=== PATIENT | female | born 2000 ===

== ENCOUNTER 2025-03-02 08:59 | Outpatient (AMB) | payer BC, SELFPAY ==
--- NOTE | 2025-03-02 09:01 | MHC.OFFWIV ---
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 This initially started with a mildly sore throat, which has since resolved. Cough has been persistent throughout the day, and especially worse overnight, limiting patient's ability to sleep and impacting her work. Denies any known exposure to sick contacts. Denies any fevers, chills, body aches, shortness of breath, GI symptoms. Has been taking Dayquil/Nyquil with some minor benefit. Review of Systems Const All systems reviewed & are unremarkable except as noted in HPI and below Physical Exam Const General: cooperative, healthy appearing, comfortable and no acute distress HEENT Head: Yes normal to inspection Ears: hearing grossly normal bilaterally General nose exam: Normal external nose present, Normal nares present and Normal nasal mucous membranes and turbinates present Face and sinus: Yes normal facial exam and Yes sinuses nontender Mouth: Normal oral and palatal mucosa present Throat: Yes posterior oropharynx normal Neck Neck: Yes normal visual inspection and Yes no lymphadenopathy Resp Effort & Inspection: normal respiratory effort and Actively coughing Quality: dry Auscultation: clear to auscultation bilaterally Cardio Rate: regular rate Rhythm: regular rhythm Heart sounds: S1 normal heart sound present and S2 normal heart sound present Skin General skin exam: no rashes or lesions noted Extrem General: Yes capillary refill normal and Yes no clubbing, cyanosis or edema Psych Appearance: grossly normal Mental Status: mental status grossly normal Speech and movement: Normal speech and movement present Results AMB Rapid Strep AMB Rapid Strep Negative Last Edit by Gemma Vicente MA on 03/02/25 09:15 Assessment & Plan Assessment & Plan (1) Persistent dry cough: Code(s): R05.3 - Chronic cough Plan: Persistent, dry cough >1w. Rapid strep negative. Has tried otc products. Discussed short course of Prednisone, which patient would like to try, as coughing has been limiting sleep and ability to go to work. We reviewed indications, use, possible s/e of medication. She should continue with adequate hydration. Can use lozenges/cough drops prn. If she does not improve with treatment or if symptoms worsen, she can return to the clinic for further evaluation. Patient verbailizes understanding and agrees to plan. Orders: Orders AMB Rapid Strep Screen Today Z13.9 - Encounter for screening, unspecified Medications: New prednisone 40 mg (2 x 20 mg) PO DAILY 6 tabs 0RF 3 days R05.3 - Chronic cough Coding Level of Care Code Est Pt Level 4 (40511) Diagnoses Persistent dry cough R05.3
[2025-03-02 09:03] VITALS: BP 102/60; PULSE 75; TEMP 36.7; O2SAT 95; BMI 23.5
--- OUTSIDE RECORDS SUMMARY | 2025-03-02 09:25 | XMS_ITS | Encounter Summary ---
Author Organization [facility] Address [address] [place] [address] Phone Care Team Providers Care Traffic Workforce Representative Name Role Phone Dina Singh MD Primary Care Provider Unavailab le Encounter Details Date Type Department Care Team (Late st Contact Info) Description 08/24/[address] [facility] [place] [address] [place] [address] Family Medicine, Physician [address] [place] [address] Social History Tobacco Use Types Packs/Day Years Used Date Smoking Tobacco: Never Assessed Comments Unknown Sex and Gender Information Value Date Recorded Sex Assigned at Not on file Legal Sex Female 4:53 PM EDT Gender Identity Not on file Sexual Orientation Not on file documented as of this encounter Plan of Treatment Not on file documented as of this encounter Visit Diagnoses Not on filedocumented in this encounter Care Teams Traffic Workforce Representative Relationship Specialty Start Date End Date Dina Singh MD PCP - General Pediatrics 09/24/17 11/11/22 documented as of this encounter
--- OUTSIDE RECORDS SUMMARY | 2025-03-02 09:25 | XMS_ITS | Clinical Summary ---
Author Organization [facility] Address [address] [place] [address] Phone Care Team Providers Care Change Control Analyst Name Role Phone Unavailable Primary Care Provider Unavailabl e Allergies No known active allergies Medications No known medications Active Problems No known active problems Immunizations Immunization Administration Dates Next Due DTaP 09/15/2006, 4,06/12/2002, 002,02/10/2002 HPV Vaccine 9 Valent 10/26/2018,04/18/2018,10/15 Hep A, ped/adol 02/28/2014,09/15/2006 Hep B, ped/adol 09/15/2002,01/11/2002,2001 Hib (PRP-T) 06/18/2003, 3,04/03/2002, 002 IPV 09/15/2006, 3,04/03/2002, 002 Influenza, injectable, quadrivalent 08/20/2015 Influenza, intranasal, quadrivalent 02/28/2014 Influenza, intranasal, trivalent 06/15/2012 MMR 03/20/2003 MMRV 09/15/2006 Meningococcal Conj (Menactra) MCV4P 10/26/2018,1 Pneumococcal Conjugate 06/18/2003,2002,06/12/2002, 002 Tdap 01/25/2014 Varicella 06/08/2005 Family History Relation Name Status Comments Brother Jony Alive Father Ray Alive Mother Sandra Alive Other Family history of Cancer, lung, Family history of Obesity, Family history of Diabetes mellitus, Family history of Migraines, Family history of Asthma Social History Tobacco Use Types Packs/Day Years Used Date Smoking Tobacco: Never Smokeless Tobacco: Never Comments:Never smoker Alcohol Use Standard Drinks/Week Comments No 0 (1 standard drink = 0.6 oz pur e alcohol) Comments No Sex and Gender Information Value Date Recorded Sex Assigned at Not on file Legal Sex Female 4:53 PM EDT Gender Identity Not on file Sexual Orientation Not on file Last Filed Vital Signs Vital Sign Reading Time Taken Comments Blood Pressure 119/71 10/26/2018 1:44 PM EDT Pulse 58 10/26/2018 1:44 PM EDT Temperature 36.2 C (97.1 F) 12/10/2017 11:08 AM EDT Respiratory Rate - - Oxygen Saturation - - Inhaled Oxygen Concentration - - Weight 57.5 kg (126 lb 12.8 oz) 10/26/2018 1:44 PM EDT Height 170.2 cm (5' 7 ) 10/26/2018 1:44 PM EDT Body Mass Index 19.86 10/26/2018 1:44 PM EDT Plan of Treatment Health Maintenance Due Date Last Done Comments Hepatitis B Vaccines (3 of 3 - 3-dose series) 11/10/2002 09/15/2002, 01/11/2002, 2001 Men B Vaccine (1 of 2 - Standard) 2017 DTaP,Tdap,and Td Vaccines (7 - Td or Tdap) 01/26/2024 01/25/2014, 09/15/2006, 06/18/2003, Additional history exists Influenza Vaccines (#1) 2024 08/20/19 16, 02/28/2014, 06/15/2012 COVID-19 Vaccine (3 - 2024-2 6 season) 2025 09/19/2020, 08/27/2020 HIB Vaccines Completed 06/18/2003, 05/31, 04/03/2002, Additional history exists Pneumococcal Vaccine Completed 06/18/2003, 09/15/2002, 06/12/2002, Additional history exists IPV Vaccines Completed 09/15/2006, 03/01, 04/03/2002, Additional history exists MMR Vaccines Completed 09/15/2006, 03/20/2003 Varicella Vaccines Completed 09/15/2006, 06/08/2005 Hepatitis A Vaccines Completed 02/28/2014, 09/16/19 07 HPV Vaccines Completed 10/26/2018, 03/31, 10/15/2017 Meningococcal Vaccine Completed 10/26/2018, 014 Procedures * Due to [place] IRIS-RFID law, this organization might not be sharing sensitive test results. Procedure Name Priority Date/Time Associated Diagnosis Comments CHLAMYDIA AND GONORRHEA, AMPLIFIED Routine 10/26/2018 1:50 PM EDT Screening examination for bacterial and spirochetal disease from Last 3 Months or Most Recently Relevant to Health Maintenance Results * Due to [place] IRIS-RFID law, this organization might not be sharing sensitive test results. * Chlamydia and Gonorrhoea, Amplified (10/26/2018 1:50 PM EDT) Chlamydia Trachomatis, DNA Probe NEGATIVE (NEG) [facility] Comment: No Chlamydia Trachomatis RNA detected in this patient's sample (REFERENCE RANGE/NORMAL VALUE: NOT DETECTED) Note: This test uses research intern- mediated amplification method to detect rRNA from C. Trachomatis URINE GC AMP PROBE NEGATIVE (NEG) [facility] Comment: No Neisseria Gonorrhoeae RNA detected in this patient's sample (REFERENCE RANGE/NORMAL VALUE: NOT DETECTED) NOTE: This test uses research intern-mediated amplification method to detect rRNA from N.Gonorrhoeae. A negative result does not preclude infection. In the case of a negative urine result, testing of an endocervical(female) or urethral (male) specimen is recommended if there is high clinical suspicion of infection. Due to very high sensitivity of Nucleic Acid Amplification Test, false positive results may occur. Therefore, specimen handling is extremely important. In patients in whom the disease is unlikely, additional sample for testing should be considered after an initial positive result. The performance characteristics of this test have not been evaluated in children. The Aptima Combo2 assay is not intended for the evaluation of suspected sexual abuse or for other medico-legal indications. The ordering provider should assess if the patient had consensual sex without risk of sexual abuse. Consult the [facility] if needed. Contact phone number . Therapeutic failure or success cannot be determined with the Aptima Combo2 assay since nucleic acid may persist following appropriate antimicrobial therapy. The Centers for Disease Control and Prevention (CDC) recommends confirmatory retesting using culture or a different nucleic acid amplification test when positive results occur, if indicated. Testing performed or reported by [facility], a Service of [facility], [facility] [address], [place] [address] Urine 10/26/2018 1:50 PM EDT 10/27/2018 12:45 AM EDT us Dina Singh MD LAB MICROBIOLOGY - GENERAL ORDER BRITTANY Final Result [facility] from Last 3 Months or Most Recently Relevant to Health Maintenance
--- OUTSIDE RECORDS SUMMARY | 2025-03-02 09:25 | XMS_ITS | Encounter Summary ---
Author Organization [facility] Address [address] [place] [address] Phone Care Team Providers Care Marketing Technologist Name Role Phone Dina Singh MD Primary Care Provider Unavailab le Encounter Details Date Type Department Care Team (Late st Contact Info) Description 08/24/2011 Documentation [facility] [place] Family Medicine [address] [place] [address] Family Medicine, Physician [address] [place] [address] Social History Tobacco Use Types Packs/Day Years [...] on filedocumented in this encounter Care Teams Marketing Technologist Relationship Specialty Start Date End Date Dina Singh MD PCP - General Pediatrics 09/24/17 11/11/22 documented as of this encounter
--- OUTSIDE RECORDS SUMMARY | 2025-03-02 09:25 | XMS_ITS | Encounter Summary ---
Author Organization [facility] Address [address] [place] [address] Phone Care Team Providers Care Mineral Economist Name Role Phone Dina Singh MD Primary Care Provider Unavailab le Encounter Details Date Type Department Care Team (Late st Contact Info) Description [address] [facility] [place] Family Medicine [address] [place] [address] Family Medicine, Physician [address] [place] [address] Social History Tobacco Use Types Packs/Day Years [...] on filedocumented in this encounter Care Teams Mineral Economist Relationship Specialty Start Date End Date Dina Singh MD PCP - General Pediatrics 09/24/17 11/11/22 documented as of this encounter
--- OUTSIDE RECORDS SUMMARY | 2025-03-02 09:25 | XMS_ITS | Encounter Summary ---
Author Organization [facility] Address [address] [place] [address] Phone Care Team Providers Care Software Project Manager Name Role Phone Dina Singh MD Primary Care Provider Unavailab le Encounter Details Date Type Department Care Team (Late st Contact Info) Description 01/25/2014 Documentation [facility] [place] Family Medicine [address] [place] [address] Family Medicine, Physician [address] [place] [address] Social History Tobacco Use Types Packs/Day Years [...] on filedocumented in this encounter Care Teams Software Project Manager Relationship Specialty Start Date End Date Dina Singh MD PCP - General Pediatrics 09/24/17 11/11/22 documented as of this encounter
--- OUTSIDE RECORDS SUMMARY | 2025-03-02 09:25 | XMS_ITS | Encounter Summary ---
Author Organization [facility] Address [address] [place] [address] Phone Care Team Providers Care Managing Attorney Name Role Phone Dina Singh MD Primary Care Provider Unavailab le Encounter Details Date Type Department Care Team (Late st Contact Info) Description 03/01/2014 Documentation [facility] [place] Family Medicine [address] [place] [address] Family Medicine, Physician [address] [place] [address] Social History Tobacco Use Types Packs/Day Years [...] on filedocumented in this encounter Care Teams Managing Attorney Relationship Specialty Start Date End Date Dina Singh MD PCP - General Pediatrics 09/24/17 11/11/22 documented as of this encounter
--- OUTSIDE RECORDS SUMMARY | 2025-03-02 09:25 | XMS_ITS | Encounter Summary ---
Author Organization [facility] Address [address] [place] [address] Phone Care Team Providers Care Rat Trapper Name Role Phone Dina Singh MD Primary Care Provider Unavailab le Encounter Details Date Type Department Care Team (Late st Contact Info) Description 01/14/2017 Conversion Encounter [facility] - [address] [address] Social History Tobacco Use Types Packs/Day Years Used Date Smoking Tobacco: Never Comments:Never smoker Comments Unknown Sex and Gender Information Value Date Recorded Sex Assigned at Not on file Legal Sex Female 4:53 PM EDT Gender Identity Not on file Sexual Orientation Not on file documented as of this encounter Plan of Treatment Not on file documented as of this encounter Visit Diagnoses Not on filedocumented in this encounter Care Teams Rat Trapper Relationship Specialty Start Date End Date Dina Singh MD PCP - General Pediatrics 09/24/17 11/11/22 documented as of this encounter
--- OUTSIDE RECORDS SUMMARY | 2025-03-02 09:25 | XMS_ITS | Encounter Summary ---
Author Organization [facility] Address [address] [place] [address] Phone Care Team Providers Care Desktop Publisher Name Role Phone Dina Singh MD Primary Care Provider Unavailab le Encounter Details Date Type Department Care Team (Late st Contact Info) Description 03/01/[address] [facility] [place] Medicine [address] [place] [address] Family Medicine, Physician [address] [place] [address] Social History Tobacco Use Types Packs/Day Years [...] on filedocumented in this encounter Care Teams Desktop Publisher Relationship Specialty Start Date End Date Dina Singh MD PCP - General Pediatrics 09/24/17 11/11/22 documented as of this encounter
--- OUTSIDE RECORDS SUMMARY | 2025-03-02 09:25 | XMS_ITS | Encounter Summary ---
Author Organization [facility] Address [address] [place] [address] Phone Care Team Providers Care Director Of Student Life Name Role Phone Dina Singh MD Primary Care Provider Unavailab le Encounter Details Date Type Department Care Team (Late st Contact Info) Description 06/16/2012 [place]ation [facility] [place] [address] [place] [address] Family Medicine, Physician [address] [place] [address] Social History Tobacco Use Types Packs/Day Years [...] on filedocumented in this encounter Care Teams Director Of Student Life Relationship Specialty Start Date End Date Dina Singh MD PCP - General Pediatrics 09/24/17 11/11/22 documented as of this encounter
--- OUTSIDE RECORDS SUMMARY | 2025-03-02 09:25 | XMS_ITS | Encounter Summary ---
Author Organization [facility] Address [address] [place] [address] Phone Care Team Providers Care Clinical Nutritionist Name Role Phone Dina Singh MD Primary Care Provider Unavailab le Encounter Details Date Type Department Care Team (Late st Contact Info) Description 03/01/2014 [place] [facility] [place] [address] [place] [address] Family Medicine, Physician [address] [place] [address] Social History Tobacco Use Types Packs/Day Years [...] on filedocumented in this encounter Care Teams Clinical Nutritionist Relationship Specialty Start Date End Date Dina Singh MD PCP - General Pediatrics 09/24/17 11/11/22 documented as of this encounter
--- OUTSIDE RECORDS SUMMARY | 2025-03-02 09:25 | XMS_ITS | Encounter Summary ---
Author Organization [facility] Address [address] [place] [address] Phone Care Team Providers Care Exercise Equipment Repair Technician Name Role Phone Dina Singh MD Primary Care Provider Unavailab le Encounter Details Date Type Department Care Team (Late st Contact Info) Description 01/25/2014 [place] [facility] [place] [address] [place] [address] Family Medicine, Physician [address] [place] [address] Social History Tobacco Use Types Packs/Day Years [...] on filedocumented in this encounter Care Teams Exercise Equipment Repair Technician Relationship Specialty Start Date End Date Dina Singh MD PCP - General Pediatrics 09/24/17 11/11/22 documented as of this encounter
--- OUTSIDE RECORDS SUMMARY | 2025-03-02 09:25 | XMS_ITS | Encounter Summary ---
Author Organization [facility] Address [address] [place] [address] Phone Care Team Providers Care Ed Educational Aide Name Role Phone Dina Singh MD Primary Care Provider Unavailab le Encounter Details Date Type Department Care Team (Late st Contact Info) Description 08/24/2011 [place] [facility] [place] [address] [place] [address] Family Medicine, Physician [address] [place] [address] Social History Tobacco Use Types Packs/Day Years [...] on filedocumented in this encounter Care Teams Ed Educational Aide Relationship Specialty Start Date End Date Dina Singh MD PCP - General Pediatrics 09/24/17 11/11/22 documented as of this encounter
--- OUTSIDE RECORDS SUMMARY | 2025-03-02 09:25 | XMS_ITS | Encounter Summary ---
Author Organization [facility] Address [address] [place] [address] Phone Care Team Providers Care Mission Analyst Name Role Phone Dina Singh MD Primary Care Provider Unavailab le Encounter Details Date Type Department Care Team (Late st Contact Info) Description 08/24/2011 Documentation [facility] [place] Family Medicine [address] [place] [address] Family Medicine, Physician [address] [place] [address] Social History Tobacco Use Types Packs/Day Years [...] on filedocumented in this encounter Care Teams Mission Analyst Relationship Specialty Start Date End Date Dina Singh MD PCP - General Pediatrics 09/24/17 11/11/22 documented as of this encounter
--- OUTSIDE RECORDS SUMMARY | 2025-03-02 09:25 | XMS_ITS | Encounter Summary ---
Author Organization [facility] Address [address] [place] [address] Phone Care Team Providers Care Firer Glost Kiln Name Role Phone Dina Singh MD Primary Care Provider Unavailab le Encounter Details Date Type Department Care Team (Late st Contact Info) Description 08/21/2015 Documentation [facility] [place] [address] [place] [address] Family Medicine, Physician [address] [place] [address] Social History Tobacco Use Types Packs/Day Years [...] on filedocumented in this encounter Care Teams Firer Glost Kiln Relationship Specialty Start Date End Date Dina Singh MD PCP - General Pediatrics 09/24/17 11/11/22 documented as of this encounter
--- OUTSIDE RECORDS SUMMARY | 2025-03-02 09:25 | XMS_ITS | Encounter Summary ---
Author Organization [facility] Address [address] [place] [address] Phone Care Team Providers Care Supervisor Meter Repair Shop Name Role Phone Dina Singh MD Primary Care Provider Unavailab le Encounter Details Date Type Department Care Team (Late st Contact Info) Description 08/21/2015 Documentation [facility] [place] Family Medicine [address] [place] [address] Family Medicine, Physician [address] [place] [address] Social History Tobacco Use Types Packs/Day Years [...] on filedocumented in this encounter Care Teams Supervisor Meter Repair Shop Relationship Specialty Start Date End Date Dina Singh MD PCP - General Pediatrics 09/24/17 11/11/22 documented as of this encounter
--- OUTSIDE RECORDS SUMMARY | 2025-03-02 09:25 | XMS_ITS | Encounter Summary ---
Author Organization [facility] Address [address] [place] [address] Phone Care Team Providers Care Trust Clerk Name Role Phone Dina Singh MD Primary Care Provider Unavailab le Encounter Details Date Type Department Care Team (Late st Contact Info) Description 08/24/2011 Documentation [facility] [place] Family Medicine [address] [place] [address] Family Medicine, Physician [address] [place] [address] Social History Tobacco Use Types Packs/Day Years [...] on filedocumented in this encounter Care Teams Trust Clerk Relationship Specialty Start Date End Date Dina Singh MD PCP - General Pediatrics 09/24/17 11/11/22 documented as of this encounter
--- OUTSIDE RECORDS SUMMARY | 2025-03-02 09:25 | XMS_ITS | Encounter Summary ---
Author Organization [facility] Address [address] [place] [address] Phone Care Team Providers Care Seasonal Recruiter Name Role Phone Dina Singh MD Primary Care Provider Unavailab le Encounter Details Date Type Department Care Team (Late st Contact Info) Description 02/13/2014 [place] [facility] [place] [address] [place] [address] Family Medicine, Physician [address] [place] [address] Social History Tobacco Use Types Packs/Day Years [...] on filedocumented in this encounter Care Teams Seasonal Recruiter Relationship Specialty Start Date End Date Dina Singh MD PCP - General Pediatrics 09/24/17 11/11/22 documented as of this encounter
--- OUTSIDE RECORDS SUMMARY | 2025-03-02 09:25 | XMS_ITS | Encounter Summary ---
Author Organization [facility] Address [address] [place] [address] Phone Care Team Providers Care Cylinder Press Operator Apprentice Name Role Phone Dina Singh MD Primary Care Provider Unavailab le Encounter Details Date Type Department Care Team (Late st Contact Info) Description 08/21/2015 Documentation [facility] [place] Family Medicine [address] [place] [address] Family Medicine, Physician [address] [place] [address] Social History Tobacco Use Types Packs/Day Years [...] on filedocumented in this encounter Care Teams Cylinder Press Operator Apprentice Relationship Specialty Start Date End Date Dina Singh MD PCP - General Pediatrics 09/24/17 11/11/22 documented as of this encounter
== END 2025-03-02 09:30 | disposition home or self-care (01) ==
PROVIDERS: Visit Provider Nurse Practitioner Family
DX: R05.3 Chronic cough (principal); Z13.9 Encounter for screening, unspecified

== ENCOUNTER → 2025-03-02 08:59 | Outpatient (BNVA) | payer BC, SELFPAY | PROVIDERS: Visit Provider Nurse Practitioner Family | DX: R05.3 Chronic cough (principal) | CPT/HCPCS: 87880 ==